=== PATIENT | male | born 2005 | race African-American/Black ===

== ENCOUNTER 2024-02-15 22:34 | Emergency (ER) | payer MEDICAID ==
[~2024-02-15] VITALS: Ht 188 cm; Wt 83.0 kg
[2024-02-15 22:53] VITALS: BP 117/81; PULSE 70; RESP 18; TEMP 98.7; O2SAT 100
== END 2024-02-16 01:25 | disposition home or self-care (01) ==
LOC: ER 22:34
DX: N48.89 Other specified disorders of penis (principal)
CPT/HCPCS: 36415; 99283